=== PATIENT | female | born 1985 | race Two or more races ===

== ENCOUNTER 2025-06-06 08:02 | Outpatient (RCR) | payer MEDICAID, SELFPAY | END 2025-06-26 23:59 | disposition home or self-care (01) | LOC: SCTC 08:02 | PROVIDERS: PCP Obstetrics & Gynecology; Referring Provider Obstetrics & Gynecology; Visit Provider Nurse Practitioner Family | DX: D50.9 Iron deficiency anemia, unspecified (principal); N92.0 Excessive and frequent menstruation with regular cycle | CPT/HCPCS: 99213; G0463 ==